=== PATIENT | female | born 1975 | race Caucasian/White ===

== ENCOUNTER 2023-09-16 06:02 | Day surgery (SDC) | payer BC ==
[2023-09-09 16:14] LABS: Specific Gravity 1.006 (1.005-1.030); Urine Bacteria None Seen /HPF (<20); Urine Bilirubin NEGATIVE (Negative); Urine Blood Negative (Negative); Urine Clarity Turbid (Clear); Urine Color Colorless (Yellow); Urine Glucose NEGATIVE (Negative); Urine Protein NEGATIVE (Negative); Urine RBC None Seen /HPF (None Seen); Urine Urobilinogen Normal (Normal)
[2023-09-09 16:15] LABS: Absolute Lymphocytes (CBC) 1.8 K/uL (0.7-4.9); Hematocrit 38.7 % (36.0-45.0); Lymphocytes % 20.4 % (15.3-44.8); MCV 88.2 fL (80-100); Platelets 339 thou/uL (152-406); RBC Red Blood Cell Count 4.38 M/uL (3.86-4.86)
[2023-09-16] MEDS ORDERED: SCOPOLAMINE HYDROBROMIDE PATCH TD ONE (06:22)
[2023-09-16] MEDS ORDERED: CEFAZOLIN SODIUM 2 GM/VIAL ONE (06:22)
[2023-09-16] MEDS ORDERED: Ringers Lactate 1,000 ML IV ONE ×2 (06:22→10:04)
[2023-09-16] MEDS ORDERED: BUPIVACAINE 0.25% PF 30 ML VIAL ONE (06:33)
[2023-09-16] MEDS ORDERED: ONDANSETRON 4 MG/2 ML VIAL ONE (06:49)
[2023-09-16] MEDS ORDERED: FENTANYL CITR 100 MCG/2 ML ONE (06:49)
[2023-09-16] MEDS ORDERED: LIDOCAINE 2% MPF 5 ML VIAL ONE (06:49)
[2023-09-16] MEDS ORDERED: ROCURONIUM 50 MG/5 ML VIAL IV ONE (06:49)
[2023-09-16] MEDS ORDERED: MIDAZOLAM HCL 2 MG/2 ML INJ ONE (06:49)
[2023-09-16] MEDS ORDERED: propofoL 200 MG/20 ML VIAL IV ONE (06:49)
[2023-09-16] MEDS ORDERED: HYDROMORPHONE HCL 1 MG/ML INJ ONE (07:03)
--- NOTE | 2023-09-16 09:15 | CON ---
Date of Consultation: 09/16/2023 This was an intraoperative consultation. Brief History: Patient is a 48-year-old female who was undergoing a laparoscopic hysterectomy and wa s found to have extensive adhesions involving the colon and the appendix and I was asked to evaluate to see if the appendix needed to be removed. Upon examination, the appendix appeared to be involved in the adhesions on the lateral aspect of the pelvic wall, which was dissected by Dr. Cyr and it appears the appendix had some injected blood vessel and the base of the appendix and mesoappendix we re clearly identified. At this point, decision was made to perform an appendectomy laparoscopically. Endo RIYA stapling device was utilized at the base of the cecum and the appendix was divided and rem charan via EndoCatch bag. The staple line was examined. There was no evidence of bleeding or bowel in jury appreciated and Dr. Cyr resumed with her surgery performing the laparoscopic hysterectomy. /MODL Voice ID: [id number] Report ID: [id number]
[2023-09-16] MEDS ORDERED: dexAMETHasone 10 MG/ML VIAL ONE (09:26)
[2023-09-16] MEDS ORDERED: KETOROLAC 30 MG/ML INJ ONE (09:26)
[2023-09-16] MEDS ORDERED: GLYCOPYRROLATE 0.2 MG/ML SYR ONE (09:27)
[2023-09-16] MEDS ORDERED: NEOSTIGMINE 1 MG/ML -10 ML VIAL ONE (09:28)
[2023-09-16] MEDS ORDERED: Mastisol Adhesive Liq ONE (09:38)
[2023-09-16] MEDS ORDERED: PROMETHAZINE 25 MG TABLET PO PRN (09:48)
[2023-09-16] MEDS ORDERED: HYDROCODONE/APAP 5/325 MG TAB PO PRN (09:48)
[2023-09-16] MEDS ORDERED: IBUPROFEN 200 MG TAB PO PRN (09:48)
[2023-09-16] MEDS ORDERED: MEPERIDINE HCL 25 MG/ML SYR IM PRN (09:48)
[2023-09-16] MEDS ORDERED: PROMETHAZINE INJ 25 MG/ML AMP IV PRN (09:48)
--- NOTE | 2023-09-16 09:53 | P.BOP ---
Preoperative diagnosis: AUB-L, Dysmenorrhea, dyspareunia Postoperative diagnosis: same, uterine prolapse, cecal,descending colon adhesion s Primary procedure: TLH BS right ovariopexy, appt, USLS colpopexy cysto Board Worker: Radha Jurado Estimated blood loss: 25 Specimen: uterus and both tubes, appy Findings: leiomyoma, C=-2/cysto patent OUs,no endo,rt colon adhesions nd appendix Anesthesia: General Complications: None Fluids & blood products: 950 Transferred to: Recovery Room Condition: Good
[2023-09-16] MEDS ORDERED: HYDROCODONE/APAP 5/325 MG TAB ONE (10:37)
[2023-09-16 11:35] VITALS: BP 127/77; TEMP 97.3; O2SAT 99
[2023-09-16] MEDS ORDERED: PROMETHAZINE 25 MG TABLET ONE (12:00)
[2023-09-17] MEDS ORDERED: BIOTIN 10 MG PO SCH (09:00)
[2023-09-17] MEDS ORDERED: HOME MED 1 EA UNK (Omeprazole [Omeprazole] 20 MG Tab.Rap.Dr) PO SCH (09:00)
[2023-09-17] MEDS ORDERED: HOME MED 1 EA UNK (L.Acidoph,Paracasei, B.Lactis [Probiotic] Capsule) PO SCH (09:00)
[2023-09-17] MEDS ORDERED: HOME MED 1 EA UNK (Multivitamin [Multivitamin] Tablet) PO SCH (09:00)
--- NOTE | 2023-09-19 01:12 | OP ---
Date of Procedure: 09/16/2023 Surgeon: Kori Cyr MD Aids Social Worker: Radha Lynch. Intraoperative consult, Dr. Ac Bee, General Surgery. Preoperative Diagnoses: AUB-L/A, dysmenorrhea, and dyspareunia. Postoperative Diagnoses: AUB-L/A, dysmenorrhea, and dyspareunia, uterine prolapse, ascending and tyler cending colon adhesions. Procedures Performed: Total laparoscopic hysterectomy, bilateral salpingectomy, right ovariopexy, ap pendectomy by Dr. Bee, uterosacral ligament suspension, colpopexy, and cystoscopy. Estimated Blood Loss: 25. Specimens: Uterus, bilateral tubes, and appendix. Findings: Leiomyoma, large on the uterus, point C was -2. Cystoscopy showed patent ureters. No end ometriosis. Right colon adhesions were seen in the right lower quadrant as well as into the right mi d abdomen. Appendix had adhesions around it to the right pelvic sidewall below the pelvic brim, also at the level of the IP ligament, and therefore I deemed it appropriate to have a consult for appende ctomy done at the same time. Anesthesia: General endotracheal. Urine Output: 200. Fluids: 950. Complications: No complications. Disposition: Transferred to the recovery room in stable condition. Drains: No drains. Condition: Good. Indications: The patient is a 48-year-old smoker with heavy bleeding and cramps and dyspareunia. On ultrasound, found to have leiomyoma. On endometrial sampling, found to have no atypia or malignancy in her endometrium. So discussed about all the treatment options including medical treatment, IUD, and ablation along with endometriosis excision or hysterectomy with endometriosis excision and possib le treatment of etiology for her pain. Procedure In Detail: She consented for hysterectomy, bilateral salpingectomy, and taken back to the OR. 2 g of Ancef were given. SCDs were placed. Time-out was done after the patient was placed unde r general anesthesia in a dorsal lithotomy position after abdomen was prepped and draped in a sterile fashion. Speculum was placed to expose the cervix. Anterior lip was grasped with single-tooth tenaculum and d ilated to 16-Saudi Arabian and the large cup uterine manipulator was introduced and fixed in place. O[place]fe w as used to drain the bladder. Then, I was able to go to the abdominal side after covering the vagina l portion. A 1 cm infraumbilical incision was made with a scalpel using the open laparoscopy technique. After b upivacaine was injected, fascia was incised, tagged with 0 Vicryl sutures, peritoneum entered sharply . After Jose was introduced and after adequate insufflation, there were significant adhesions in t he right lower quadrant as well as the right lateral abdomen. A 5 port was placed from the left lowe r quadrant and the adhesions were taken down systematically in order for me to even place the port. The colon was taken down with sharp dissection with scissors as well as the LigaSure. This took at l east 20 minutes of the case. Then, a left lower quadrant 5 port and 10 mm sup[address]ub[address] port were place d under direct vision and suture was continued. After assessing the appendix, intraoperative consult was gained. The appendix was dissected off the pelvic sidewall. Mesoappendix was also taken down w ith the help of the LigaSure. The ureter cleared off from the appendix after dissecting the distal p art of the cecum and appendix away from it and then from the pelvic floor. The Endo-RIYA was fired by Dr. Bee. Please refer to his note. Hysterectomy was performed by taking down the left tube, left round ligament, utero-ovarian ligament, anterior and posterior broad ligaments, raising the bladder flap dissecting and creating the anterio r dissection on the anterior vaginal wall dissecting the bladder inferiorly, posteriorly taken the pe ritoneum towards the cup and taking the vessels down with the bipolar curved tip as well as LigaSure and then cut. Cardinal ligaments were also taken down in the same technique. On the opposite side, similar dissection was performed to take down the round ligament and dissecting down the mesosalpinx. The tube was taken, utero-ovarian ligament was taken, distal portion of the tube was removed and gi garima out as a separate specimen. After the utero-ovarian was taken, the rest of the broad ligament wa s dissected to open the bladder flap anteriorly and connected and bladder dissected completely down. The vessels were exposed. Posterior peritoneum taken down and the vessels taken with the LigaSure, and the bipolar and scissors were used to cut. The base of the pedicle was also cauterized and cardi nal ligaments taken down circumferentially, colpotomy with a monopolar hook blade, specimen removed t hrough the vagina. Although it was a tight fit, it was able to be removed. After the vaginal occluder was placed, thorough irrigation and suction were performed. Hemostasis wa s secured in the middle tip bipolar. The vaginal cuff was closed with the help of 0 PDS x5, 2 simple angle sutures, and 3 [id number] in the middle. The uterosacral ligaments were detached, left more than the right and point C was -2, so I decided to perform an uterosacral colpopexy, especially since the rest of the detachment was done. The anterior vaginal wall was dissected open another 2.5 cm. The bladder dissected inferiorly. Afte r the flap was created, then a 2-0 V-Loc suture was taken after exposing the uterosacral ligament theresa ntifying the ureter at the tunnel. Then, a continuous running suture was passed through the uterosac ral, then posterior vaginal connective tissue and anterior vaginal connective tissue. The cuff was c losed in a second layer pulling over the anterior vaginal wall connective tissue over the posterior a nd bringing this together. Then, the lateral most part on the left side was completed and the stitch ran through the left uterosacral ligament after identifying the left ureter at the level of the tunn el incising the peritoneum to release it. There was a good suspension, point C was -7. I did a cystoscopy with 17-Saudi Arabian sheath, 30-degree lens, normal saline. Both ureteric orifices were patent. No evidence of any trauma or foreign body in the bladder. The bladder was drained. Vagina l occluder and the [place] were removed. After re-gloving, we went up to the laparoscopic part. All the ports were removed under direct visio n. Then, the gas was desufflated and the fascia at the umbilicus was closed with the help of the tag ged 0 Vicryl sutures tied to each other and simple 0 Vicryl suture, stitch of the fascia on the supra pubic site, closed with 5-0 Monocryl, all skin incisions in an interrupted fashion. The patient monster rated the procedure well. She was recovered from anesthesia and taken to PACU in stable condition. Estimated Blood Loss: 25. EMI/OSWALDOL Voice ID: [id number] Report ID: [id number]
== END 2023-09-16 12:20 | disposition home or self-care (01) ==
LOC: OR 06:02
PROVIDERS: ATTEND Obstetrics & Gynecology
PROC: 0UT74ZZ Resection of Bilateral Fallopian Tubes, Percutaneous Endoscopic Approach (ICD-10-PCS; 2023-09-16)
PROC: 0USG4ZZ Reposition Vagina, Percutaneous Endoscopic Approach (ICD-10-PCS; 2023-09-16)
PROC: 0DTJ4ZZ Resection of Appendix, Percutaneous Endoscopic Approach (ICD-10-PCS; 2023-09-16)
PROC: 0DNF4ZZ Release Right Large Intestine, Percutaneous Endoscopic Approach (ICD-10-PCS; 2023-09-16)
PROC: 0DNW4ZZ Release Peritoneum, Percutaneous Endoscopic Approach (ICD-10-PCS; 2023-09-16)
PROC: 0UQ04ZZ Repair Right Ovary, Percutaneous Endoscopic Approach (ICD-10-PCS; 2023-09-16)
PROC: 0UT94ZZ Resection of Uterus, Percutaneous Endoscopic Approach (ICD-10-PCS; principal; 2023-09-16 07:00)
DX: N92.1 Excessive and frequent menstruation with irregular cycle (principal); N94.6 Dysmenorrhea, unspecified; N94.10 Unspecified dyspareunia; K38.8 Other specified diseases of appendix; D25.9 Leiomyoma of uterus, unspecified; K66.0 Peritoneal adhesions (postprocedural) (postinfection); F17.210 Nicotine dependence, cigarettes, uncomplicated; N83.8 Other noninflammatory disorders of ovary, fallopian tube and broad ligament
CPT/HCPCS: 85025; 81001; 36415 ×2; 86900; 86850; 84703; 86901; 88302; 88307; 58571; 57283; 44970; 44180; 49329; 58999; Q0169; J2704; J2710; J2001; J2250; J3010; J1100; J1170; J2405; J7120 ×2